=== PATIENT | male | born 1945 | race Caucasian/White ===

== ENCOUNTER 2019-04-13 08:40 | Outpatient (CLI) | payer MEDICARE, SELFPAY ==
--- NOTE | ~2019-04-13 | XR_ITS ---
EXAMINATION: XR abdomen/kub 1V EXAM DATE: 04/13/2019 09:02 INDICATION: Hydronephrosis right-sided. 2 mm right distal ureteral calcification. Small bilateral nep hrolithiasis. TECHNIQUE: Frontal projection of the upper abdomen, frontal projection lower abdomen/pelvis for inter pretation. Comparison is made to prior examination from 02/14/2019. FINDINGS: Previously seen large right pelvic calcific densities are no longer identified. There are 2 tiny right pelvic densities which could correlate to the 2 right ureteral stones identified on CT s scott date. This finding has been indicated, marked on the examination for review, clinical correlation . Expected amount of colonic stool. Mild to moderate bony degenerative changes. IMPRESSION: Possible identification of small right ureteral calcifications. Reviewed, dictated and finalized at location A. 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
--- NOTE | ~2019-04-13 | CT_ITS ---
EXAMINATION: CT abdomen pelvis wo/w con DATE: 04/13/2019 09:40 INDICATION: Kidney stones removed 3 weeks ago TECHNIQUE: Computed tomography (CT) of the abdomen and pelvis was performed without and subsequently with 130 cc Omnipaque 350 intravenous contrast. Automated exposure control and iterative reconstructi on technique were employed. Exam dose: 2076.57 mGy-cm total exam DLP. COMPARISON: 02/14/2019 CT abdomen pelvis FINDINGS: Status post sternotomy. There is discoid atelectasis or more likely scar discoid scarring in both lower lung zones, involving particularly the posterior medial aspect of the lower lobes. Normal heart size. No pericardial or pleural effusion. No hepatic, splenic, pancreatic, adrenal or renal space-occupying mass lesion is detected. There are numerous gallstones. No gallbladder wall thickening or pericholecystic fluid or stranding. No bile duct or pancreatic duct dilatation. 2.5 mm right renal nonobstructing calculus. 3 mm nonobstructing left renal calculus. There are two approximately 3 - 4 mm distal right ureteral calculi. Moderate right hydroureteronephr osis. 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 Prostate enlargement and calcification. Bilateral fat containing inguinal hernias, larger on the left. Small sliding hiatal hernia. Duodenal diverticulum. Status post right colectomy. No bowel obstruction or intraperitoneal free air. Abdominal aortic calcification; no aneurysm. Diffuse idiopathic skeletal hyperostosis. Prominent degenerative disc disease at L4-5 and L5-S1. IMPRESSION: Two right ureteral calculi, with associated moderate proximal right hydroureteronephrosi s Bilateral nephrolithiasis Cholelithiasis Small sliding hiatal hernia Duodenal diverticulum Status post right colectomy Reviewed, dictated and finalized at Location A. Reviewed, dictated and finalized at location B. LE OPERATOR IMPRESSION: Two right ureteral calculi, with associated moderate proximal righ t hydroureteronephrosis Bilateral nephrolithiasis Cholelithiasis Small sliding hiatal hernia Duodenal diverticulum Status post right colectomy
[2019-04-13 09:13] LABS: Estimated Glomerular Filt Rate 37
== END 2019-04-13 08:41 | disposition home or self-care (01) ==
LOC: ANHIMG 08:45
PROVIDERS: Visit Provider Urology
DX: N13.30 Unspecified hydronephrosis (principal); N20.0 Calculus of kidney; K80.20 Calculus of gallbladder without cholecystitis without obstruction; K44.9 Diaphragmatic hernia without obstruction or gangrene; K57.10 Diverticulosis of small intestine without perforation or abscess without bleeding
CPT/HCPCS: 36415; 74018; 74178; Q9967

== ENCOUNTER 2019-05-04 08:45 | Outpatient (CLI) | payer MEDICARE, SELFPAY ==
--- NOTE | ~2019-05-04 | XR_ITS ---
EXAMINATION: XR abdomen/kub 1V INDICATION: Right ureteral stone TECHNIQUE: Supine views of the abdomen were obtained on 2 radiographs. COMPARISON: 04/13/2019 FINDINGS: The previously described right distal ureteral stones are not definitely identified. There are phleboliths of the pelvis. A surgical staple line is noted in the right mid abdomen. There are no dilated loops of bowel. Mild right hip osteoarthritis is noted. There is moderate lumbar spondylosis . IMPRESSION: 1. No definite urinary tract calculi identified. Reviewed, dictated and finalized at location B.
== END 2019-05-04 08:46 | disposition home or self-care (01) ==
LOC: ANHIMG 08:50
PROVIDERS: Visit Provider Urology
DX: N20.1 Calculus of ureter (principal)
CPT/HCPCS: 74018

== ENCOUNTER 2022-12-28 13:21 | Outpatient (CLI) | payer MEDICARE, SELFPAY ==
--- NOTE | ~2022-12-28 | PE_ITS ---
EXAMINATION: PET_PETPSMAST_PT DATE: 12/28/2022 15:32 INDICATION: Prostate cancer. TECHNIQUE: 9.474 mCi of piflufolastat F-18 was administered intravenously. Low dose computed tomograp hy (CT) images were acquired from the base of the brain to the proximal thighs for attenuation correc tion and anatomic localization. Automated exposure control was employed. Dose-length product (DLP) wa s 666 mGy-cm. Positron emission tomography (PET) images were acquired in the same distribution. COMPARISON: CT abdomen and pelvis 04/13/2019 FINDINGS: Head/neck: There is extensive mucosal thickening in the right frontal, ethmoid, and maxillary sinuses . There is volume loss of right maxillary sinus, consistent with chronic sinusitis. There is mild lef t maxillary sinus mucosal thickening. There are no pathologically enlarged lymph nodes. Chest: There is mild atelectasis in the lungs. Calcified right lung nodules and calcified right hilar lymph nodes are consistent with old granulomatous disease. No pleural effusion. The heart size is no rmal. There are coronary artery calcifications. No pericardial effusion. Abdomen/pelvis/proximal thighs: The liver and spleen are normal. There are gallstones in the gallblad sohail, which is normal in size. The pancreas, adrenal glands, and kidneys are normal. There is no uroli thiasis. The prostate is moderately enlarged. There is increased activity in the prostate predominant ly on the right with maximum SUV of 19.5. There is a left inguinal hernia containing fat. There are n o dilated loops of bowel. There are no pathologically enlarged lymph nodes. There is no free intraper itoneal fluid. There is a benign bone island in left femoral head. IMPRESSION: 1. Moderately enlarged prostate with increased activity, consistent with primary malignancy. No evide nce of metastatic disease. Reviewed, dictated and finalized at location E. GER PROJECT MANAGEMENT IMPRESSION: 1. Moderately enlarged prostate with increased activity, consistent with primar y malignancy. No evidence of metastatic disease.
== END 2022-12-28 13:22 | disposition home or self-care (01) ==
PROVIDERS: PCP Physician Assistant; Visit Provider Urology
DX: C61 Malignant neoplasm of prostate (principal)
CPT/HCPCS: 78815; A9595